=== PATIENT | female | born 1995 | race Caucasian/White ===

== ENCOUNTER 2018-05-11 23:37 | Emergency (ER) | payer SELFPAY ==
[2018-05-12] MEDS ORDERED: CETIRIZINE 10 MG TABLET PO ONE (01:14)
--- NOTE | 2018-05-12 01:14 | ER Document Report ---
HPI - HPI Time Seen by Provider: 05/12/18 00:33 Pain Level: 1 Context: Patient is a 23-year-old female who presents the emergency department with a chief complaint of body chills, fever, and a sore throat. She states that she has flulike symptoms. She works at [employer], where they have had multiple cases of the flu. She says that she also has a runny nose. 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 IN LAST 30 DAYS: No - HEENT HEENT: Atraumatic Notes: Erythema noted to mucous membranes of bilateral nares. - NECK Neck: Normal Inspection - RESPIRATORY Respiratory: Breath Sounds Normal - CARDIOVASCULAR Cardiovascular: Regular Rate - NEURO Level of Consciousness: Awake, Alert, Appropriate - DERM Integumentary: Warm, Dry Course - Re-evaluation Re-evalutation: 05/12/18 01:50 Patient's influenza screen is negative. She will be started on Flonase and cetirizine for her symptoms. I do not suspect she has any life-threatening etiology at this time. Verbal discharge instructions were given to the patient. They verbalized understanding. They are stable for discharge. - Vital Signs Vital signs: Temp Pulse Resp BP Pulse Ox 97.8 F 87 19 131/80 H 97 05/12/18 00:09 05/12/18 00:09 05/12/18 00:09 05/12/18 00:09 05/12/18 00:09 Discharge - Discharge Clinical Impression: Fever Qualifiers: Fever type: unspecified Qualified Code(s): R50.9 - Fever, unspecified Condition: Stable Disposition: HOME, SELF-CARE Additional Instructions: You were seen today in the emergency department for flulike symptoms. Your flu screen was negative. Please take Zyrtec for your symptoms. Please start taking Flonase, 1 spray to each nostril twice a day. If you develop a fever greater than 100.4 F while on Motrin and Tylenol, have difficulty breathing, or have any symptoms that are worrisome to you, please return to the emergency department. Referrals: JAG HERNANDEZ MD [Primary Care Provider] - Follow up as needed
[2018-05-12 01:16] LABS: A TYPE INFLUENZA AG NEGATIVE (NEGATIVE); B INFLUENZA AG NEGATIVE (NEGATIVE)
[2018-05-12 01:57] VITALS: BP 128/96
== END 2018-05-12 01:57 | disposition home or self-care (01) ==
LOC: ER 23:37
DX: R50.9 Fever, unspecified (principal); J02.9 Acute pharyngitis, unspecified
CPT/HCPCS: 87804; 99283